=== PATIENT | female | born 2000 | race Caucasian/White ===

== ENCOUNTER 2021-02-22 12:51 | Emergency (ER) | payer OTHER ==
[~2021-02-22] VITALS: Ht 165.1 cm; Wt 81.6 kg
[2021-02-22] MEDS ORDERED: TYLENOL325 M1 PO (13:39)
[2021-02-22] MEDS ORDERED: NAPROXEN250 MG PO (13:39)
== END 2021-02-22 13:46 | disposition home or self-care (01) ==
LOC: ED 12:51
DX: S92.412A Displaced fracture of proximal phalanx of left great toe, initial encounter for closed fracture (principal); F17.200 Nicotine dependence, unspecified, uncomplicated; W10.8XXA Fall (on) (from) other stairs and steps, initial encounter; Y93.89 Activity, other specified; Y92.89 Other specified places as the place of occurrence of the external cause; Y99.8 Other external cause status

== ENCOUNTER → 2021-03-05 | Outpatient (CLI) | payer OTHER ==
[~2021-03-05] MED LIST: NAPROXEN250 MG PO; TYLENOL325 M1 PO
== END | disposition home or self-care (01) ==
LOC: RAD 10:16
PROVIDERS: ATTEND Orthopaedic Surgery
DX: S92.405D Nondisplaced unspecified fracture of left great toe, subsequent encounter for fracture with routine healing (principal); X58.XXXD Exposure to other specified factors, subsequent encounter